=== PATIENT | male | born 1960 | race Caucasian/White ===

== ENCOUNTER → 2019-11-11 08:29 | Outpatient (BNVA) | payer BC, SELFPAY | PROVIDERS: PCP Family Medicine; Visit Provider Family Medicine | DX: E11.9 Type 2 diabetes mellitus without complications (principal); Z79.4 Long term (current) use of insulin; E78.2 Mixed hyperlipidemia; I10 Essential (primary) hypertension | CPT/HCPCS: 80053; 80061; 82044; 83036; 85025 ==

== ENCOUNTER → 2020-02-10 09:14 | Outpatient (BNVA) | payer BC, SELFPAY | PROVIDERS: PCP Family Medicine; Visit Provider Family Medicine | DX: E11.9 Type 2 diabetes mellitus without complications (principal); Z79.4 Long term (current) use of insulin; M54.5 Low back pain; E78.2 Mixed hyperlipidemia | CPT/HCPCS: 80053; 83036 ==

== ENCOUNTER 2020-03-26 15:29 | Outpatient (CLI) | payer BC, SELFPAY ==
--- NOTE | 2020-03-26 16:30 | USCV_ITS ---
Yousuf Muniz Age: 60 Gender: M : 1960 Exam Date: 03/26/2020 15:58 Ordering Phys: Melva Edmond MD ([email or web address]) Technologist: Coretta Guerrero [place]am [place] [facility] [place]ication: EVAL LVEF AND RWMA BP: / HR: 79 Rhythm: Sinus Technical Quality: Good MEASUREMENTS (Male / Female) Normal Values 2D ECHO LV Chamber Size 4.2 cm RV Chamber Size 2.4 cm LV Ejection Fraction MOD 2C 48.6 % LV Ejection Fraction 2C AL 54.0 % LA Width 3.4 cm LA Height 5.1 cm RA Width 2.4 cm RA Height 4.3 cm M-MODE LV Diastolic Diameter MM 6.2 cm 4.2 - 5.9 / 3.9 - 5.3 cm LV Systolic Diameter MM 4.5 cm LV Ejection Fraction MM Teich 51.7 % IVS Diastolic Thickness MM 0.8 cm 0.6 - 1.0 / 0.6 - 0.9 cm IVS Systolic Thickness MM 1.2 cm LVPW Diastolic Thickness MM 1.1 cm 0.6 - 1.0 / 0.6 - 0.9 cm LVPW Systolic Thickness MM 1.2 cm RV Diastolic Diameter MM 1.5 cm FINDINGS Left Ventricle Normal left ventricular cavity size. Mild concentric left ventricular hypertrophy. Normal left ventricular systolic function. Left ventricular ejection fraction is estimated at 65 %. No regional wall motion abnormality. Right Ventricle Normal right ventricular size and systolic function. Right Atrium Normal right atrial size. Left Atrium Normal left atrial size. Mitral Valve Mildly thickened mitral valve. Aortic Valve Aortic valve not well visualized. Tricuspid Valve Structurally normal tricuspid valve. Pulmonic Valve Pulmonic valve not assessed. Pericardium No pericardial effusion. Aorta Normal-sized aortic root. CONCLUSIONS 1. This is a limited 2 D study. 2. Normal left ventricular cavity size and systolic function. Mild concentric left ventricular hypertrophy. Left ventricular ejection fraction is estimated at 65 %. No regional wall motion abnormality. 3. Normal right ventricular size and systolic function. 4. When compared to previous echocardiogram dated 07/19/2019, left ventricle systolic function has significantly improved from 30% to 60% now. Melva Edmond MD (Electronically Signed) Final Date: 28 March 2020 14:23 S
== END 2020-03-26 15:30 | disposition home or self-care (01) ==
LOC: RAD 15:35
PROVIDERS: PCP Family Medicine; Visit Provider Internal Medicine Cardiovascular Disease
DX: I50.1 Left ventricular failure, unspecified (principal)
CPT/HCPCS: 93308

== ENCOUNTER → 2020-05-11 09:03 | Outpatient (BNVA) | payer BC, SELFPAY | PROVIDERS: PCP Family Medicine; Visit Provider Family Medicine | DX: E11.9 Type 2 diabetes mellitus without complications (principal); Z79.4 Long term (current) use of insulin; Z13.6 Encounter for screening for cardiovascular disorders | CPT/HCPCS: 80053; 83036 ==

== ENCOUNTER → 2020-09-10 08:32 | Outpatient (BNVA) | payer BC, SELFPAY | PROVIDERS: PCP Family Medicine; Visit Provider Family Medicine | DX: E11.9 Type 2 diabetes mellitus without complications (principal); Z79.4 Long term (current) use of insulin; E78.2 Mixed hyperlipidemia | CPT/HCPCS: 80053; 80061; 82043; 83036 ==

== ENCOUNTER → 2021-03-11 08:17 | Outpatient (BNVA) | payer BC, SELFPAY | PROVIDERS: PCP Family Medicine; Visit Provider Family Medicine | DX: E11.9 Type 2 diabetes mellitus without complications (principal); Z79.4 Long term (current) use of insulin; I10 Essential (primary) hypertension; E78.2 Mixed hyperlipidemia; N62 Hypertrophy of breast; M54.41 Lumbago with sciatica, right side; Z68.26 Body mass index [BMI] 26.0-26.9, adult; F17.211 Nicotine dependence, cigarettes, in remission | CPT/HCPCS: 80053; 80061; 82043; 83036; 85025 ==

== ENCOUNTER → 2021-09-09 08:56 | Outpatient (BNVA) | payer BC, SELFPAY | PROVIDERS: PCP Family Medicine; Visit Provider Family Medicine | DX: E11.9 Type 2 diabetes mellitus without complications (principal); Z79.4 Long term (current) use of insulin; I10 Essential (primary) hypertension; E78.2 Mixed hyperlipidemia; M54.41 Lumbago with sciatica, right side; G89.29 Other chronic pain; R35.1 Nocturia | CPT/HCPCS: 80053; 83036; 84153 ==

== ENCOUNTER → 2022-03-16 08:24 | Outpatient (BNVA) | payer BC, SELFPAY | PROVIDERS: PCP Family Medicine; Visit Provider Family Medicine | DX: I10 Essential (primary) hypertension (principal); E11.9 Type 2 diabetes mellitus without complications; Z79.4 Long term (current) use of insulin; E78.2 Mixed hyperlipidemia; R35.1 Nocturia | CPT/HCPCS: 80053; 80061; 82043; 83036; 85025 ==

== ENCOUNTER → 2022-09-20 08:32 | Outpatient (BNVA) | payer BC, SELFPAY | PROVIDERS: PCP Family Medicine; Visit Provider Family Medicine | DX: E11.9 Type 2 diabetes mellitus without complications (principal); Z79.4 Long term (current) use of insulin; R35.1 Nocturia; B35.1 Tinea unguium | CPT/HCPCS: 80053; 83036; 84153 ==

== ENCOUNTER → 2023-03-21 08:26 | Outpatient (BNVA) | payer BC, SELFPAY | PROVIDERS: PCP Family Medicine; Visit Provider Family Medicine | DX: E11.9 Type 2 diabetes mellitus without complications (principal); Z79.4 Long term (current) use of insulin; I10 Essential (primary) hypertension; E78.2 Mixed hyperlipidemia; N52.9 Male erectile dysfunction, unspecified; M54.41 Lumbago with sciatica, right side | CPT/HCPCS: 80053; 80061; 82043; 83036; 85025 ==

== ENCOUNTER → 2023-04-20 09:48 | Outpatient (BNVA) | payer BC, SELFPAY | PROVIDERS: PCP Family Medicine; Visit Provider Family Medicine | DX: N18.31 Chronic kidney disease, stage 3a (principal) | CPT/HCPCS: 80048 ==

== ENCOUNTER → 2023-09-19 08:19 | Outpatient (BNVA) | payer BC, SELFPAY | PROVIDERS: PCP Family Medicine; Visit Provider Family Medicine | DX: E11.9 Type 2 diabetes mellitus without complications (principal); Z79.4 Long term (current) use of insulin; R35.1 Nocturia; N52.9 Male erectile dysfunction, unspecified | CPT/HCPCS: 80053; 83036; 84153 ==

== ENCOUNTER → 2024-03-11 08:33 | Outpatient (BNVA) | payer BC, SELFPAY | PROVIDERS: PCP Family Medicine; Visit Provider Family Medicine | DX: E11.9 Type 2 diabetes mellitus without complications (principal); Z79.4 Long term (current) use of insulin; E78.2 Mixed hyperlipidemia; M54.41 Lumbago with sciatica, right side | CPT/HCPCS: 80053; 80061; 82043; 83036; 85025 ==

== ENCOUNTER → 2024-08-22 08:22 | Outpatient (BNVA) | payer BC, SELFPAY | PROVIDERS: PCP Family Medicine; Visit Provider Family Medicine | DX: E11.9 Type 2 diabetes mellitus without complications (principal); Z79.4 Long term (current) use of insulin; I10 Essential (primary) hypertension; I42.8 Other cardiomyopathies; E78.2 Mixed hyperlipidemia; N18.31 Chronic kidney disease, stage 3a | CPT/HCPCS: 80053; 83036 ==

== ENCOUNTER → 2024-12-20 08:54 | Outpatient (BNVA) | payer BC, SELFPAY | PROVIDERS: PCP Family Medicine; Visit Provider Family Medicine | DX: E11.9 Type 2 diabetes mellitus without complications (principal); Z79.4 Long term (current) use of insulin | CPT/HCPCS: 80048; 83036 ==

== ENCOUNTER → 2025-06-13 09:33 | Outpatient (BNVA) | payer BC, SELFPAY | PROVIDERS: PCP Family Medicine; Visit Provider Family Medicine | DX: E11.9 Type 2 diabetes mellitus without complications (principal); Z79.4 Long term (current) use of insulin | CPT/HCPCS: 80053; 80061; 83036; 85025 ==

== ENCOUNTER → 2025-09-12 08:18 | Outpatient (BNVA) | payer BC, SELFPAY | PROVIDERS: PCP Family Medicine; Visit Provider Family Medicine | DX: N18.32 Chronic kidney disease, stage 3b (principal); E11.22 Type 2 diabetes mellitus with diabetic chronic kidney disease; I12.9 Hypertensive chronic kidney disease with stage 1 through stage 4 chronic kidney disease, or unspecified chronic kidney disease; Z79.4 Long term (current) use of insulin; Z79.84 Long term (current) use of oral hypoglycemic drugs | CPT/HCPCS: 80053; 83036 ==